=== PATIENT | male | born 1995 | race Caucasian/White ===

== ENCOUNTER 2021-03-31 15:31 | Emergency (ER) | payer MEDICAID ==
[~2021-03-31] VITALS: Ht 160 cm; Wt 73.0 kg
[2021-03-31 17:05] LABS: BASOPHILS % 0.4 % (0.0-2.0); EOSINOPHILS % 0.3 % (0.0-5.0); HEMATOCRIT. 41.9 % (42.0-52.0); HEMOGLOBIN. 14.1 g/dL (14.0-18.0); LYMPHOCYTES % 10.1 % (20.0-50.0); MEAN CORPUSCULAR VOLUME 86.4 fL (80.0-94.0); MEAN PLATELET VOLUME 8.9 fl (7.4-10.4); MONOCYTES % 5.2 % (2.0-8.0); PLATELET 295 x1000/uL (130-400); RED BLOOD CELL COUNT 4.85 mill/uL (4.7-6.1); RED CELL DISTRIBUTION WIDTH 13.6 % (11.6-14.6)
[2021-03-31 17:12] LABS: CHLORIDE 111 mEq/L (98-107)
[2021-03-31 17:17] LABS: ETHANOL BLOOD < 10 mg/dL
[2021-03-31 17:19] LABS: HCG SCREEN NEGATIVE
[2021-03-31 18:17] LABS: CLARITY URINE CLOUDY (CLEAR); COLOR URINE DARK YELLOW (YELLOW); KETONES URINE 4+ (NEGATIVE); LEUKOCYTE ESTERASE URINE 2+ (NEGATIVE); NITRITE URINE NEGATIVE (NEGATIVE); OCCULT BLOOD URINE NEGATIVE (NEGATIVE); PROTEIN URINE TRACE (NEGATIVE)
[2021-03-31 18:36] LABS: *AMPHETAMINES SCREEN URINE NEGATIVE (NEGATIVE); *BARBITURATES SCREEN URINE NEGATIVE (NEGATIVE); *BENZODIAZEPINES SCREEN URINE NEGATIVE (NEGATIVE); *COCAINE SCREEN URINE NEGATIVE (NEGATIVE)
[2021-03-31 18:37] LABS: CANNABINOID URINE SCREEN PRESUMTIVE POSITIVE (NEGATIVE); METHADONE URINE SCREEN NEGATIVE (NEGATIVE); OPIATES URINE SCREEN NEGATIVE (NEGATIVE); PHENCYCLIDINE URINE SCREEN NEGATIVE (NEGATIVE)
[2021-03-31] MEDS ORDERED: CEPHALEXIN 250MG CAPSULE PO STA (19:18)
[2021-04-01] MEDS: CEPHALEXIN 250MG CAPSULE PO SCH ×3 (08:51→20:38)
[2021-04-01] MEDS ORDERED: CEPHALEXIN 250MG CAPSULE PO SCH (09:00)
[2021-04-01] MEDS: FLUOXETINE HCL 20MG CAPSULE PO SCH (14:38)
[2021-04-01] MEDS ORDERED: FLUO40CA8 MT (15:28)
[2021-04-02] MEDS ORDERED: ACETAMINOPHEN 325MG TABLET PO NR (02:15)
[2021-04-02] MEDS: CEPHALEXIN 250MG CAPSULE PO SCH ×3 (02:41→18:35)
[2021-04-02] MEDS: FLUOXETINE HCL 20MG CAPSULE PO SCH (09:31)
[2021-04-02] MEDS: MIRTAZAPINE 15MG TABLET PO SCH (23:30)
[2021-04-03] MEDS: CEPHALEXIN 250MG CAPSULE PO SCH ×4 (01:15→22:38)
[2021-04-03] MEDS: FLUOXETINE HCL 10 MG CAPSULE PO SCH (08:42)
[2021-04-03] MEDS: MIRTAZAPINE 15MG TABLET PO SCH (22:38)
[2021-04-04] MEDS: CEPHALEXIN 250MG CAPSULE PO SCH ×2 (03:19→09:57)
[2021-04-04] MEDS: FLUOXETINE HCL 10 MG CAPSULE PO SCH (09:57)
[2021-04-04] MEDS ORDERED: CEPH500C2 MT (14:40)
[2021-04-04 17:32] VITALS: BP 122/67
== END 2021-04-04 17:35 | disposition home or self-care (01) ==
LOC: ER 15:31
DX: F32.A Depression, unspecified (principal); N39.0 Urinary tract infection, site not specified; R45.851 Suicidal ideations; F41.9 Anxiety disorder, unspecified; R94.5 Abnormal results of liver function studies; F43.10 Post-traumatic stress disorder, unspecified; Z75.1 Person awaiting admission to adequate facility elsewhere; Z20.822 Contact with and (suspected) exposure to COVID-19; Z90.10 Acquired absence of unspecified breast and nipple; Z88.1 Allergy status to other antibiotic agents; Z91.012 Allergy to eggs; Z91.018 Allergy to other foods; Z91.013 Allergy to seafood
CPT/HCPCS: 36415; 80053; 80305; 80307; 80320; 80329; 81003; 84703; 85025; 87086; 99285; C9803; U0003; U0005; G0480